=== PATIENT | female | born 1995 | race Hispanic/Latino ===

== ENCOUNTER 2018-03-26 10:38 | Emergency (ER) | payer SELFPAY ==
[2018-03-26] MEDS ORDERED: KETOROLAC TROMETHAMINE 30MG/ML ONE (11:34)
== END 2018-03-26 11:45 | disposition home or self-care (01) ==
LOC: EDH 10:38
DX: S92.511A Displaced fracture of proximal phalanx of right lesser toe(s), initial encounter for closed fracture (principal); W22.8XXA Striking against or struck by other objects, initial encounter; Y93.89 Activity, other specified; Y92.89 Other specified places as the place of occurrence of the external cause; Y99.8 Other external cause status
CPT/HCPCS: 73660; 81025; 96372; 99285; J1885

== ENCOUNTER 2018-11-22 13:35 | Emergency (ER) | payer OTHER ==
[2018-11-22] MEDS ORDERED: NEOMYCIN/POLYMYXIN/HC OTIC SUSP 10ML BOTTLE ONE (14:58)
== END 2018-11-22 15:28 | disposition home or self-care (01) ==
LOC: EDH 13:35
DX: H60.391 Other infective otitis externa, right ear (principal); Z98.890 Other specified postprocedural states

== ENCOUNTER 2019-05-08 10:38 | Emergency (ER) | payer OTHER | END 2019-05-08 11:32 | disposition home or self-care (01) | LOC: EDH 10:38 | DX: M54.5 Low back pain (principal); Z98.890 Other specified postprocedural states | CPT/HCPCS: 99281 ==

== ENCOUNTER 2021-07-31 09:18 | Emergency (ER) | payer OTHER ==
[~2021-07-31] VITALS: Ht 175.3 cm; Wt 136.1 kg
[2021-07-31 09:27] VITALS: BP 97/50
[2021-07-31 10:08] LABS: BASOPHILS % (AUTO) 0.2 % (0.0-5.0); EOSINOPHILS % (AUTO) 1.1 % (0.0-8.0); HEMATOCRIT 43.8 % (36-48); LYMPHOCYTES % (AUTO) 20.8 % (21.0-51.0); MEAN CORPUSCULAR HEMOGLOBIN 27.5 pg (27.0-33.0); MEAN CORPUSCULAR VOLUME 85.9 fL (79-99); MONOCYTES % (AUTO) 5.3 % (3.0-13.0); NEUTROPHILS % (AUTO) 72.2 % (40.0-77.0); PLATELET COUNT (AUTO) 531 K/uL (130-400); RED CELL DISTRIBUTION WIDTH 14.1 % (11.0-15.5); WHITE BLOOD COUNT (AUTO) 12.6 K/uL (4.8-10.8)
[2021-07-31] MEDS ORDERED: ACETAMINOPHEN 325 MG TAB ONE ×2 (10:15→10:21)
[2021-07-31 10:24] LABS: ALBUMIN 3.2 g/dL (3.5-5.0); CREATININE 0.6 mg/dL (0.5-1.5); POTASSIUM 4.8 mmol/L (3.5-5.1)
[2021-07-31] MEDS ORDERED: ACETAMINOPHEN 325 MG TAB PO SCH (10:30)
[2021-07-31 10:34] LABS: BILIRUBIN,TOTAL 0.6 mg/dL (0.2-1.0); TOTAL PROTEIN, SERUM 6.6 g/dL (6.0-8.3)
[2021-07-31 10:46] LABS: ABG BASE EXCESS -1.6 mmol/L (-2.0-3.0); ABG HCO3 22.4 mmol/L (21.0-28.0); ABG OXYGEN SATURATION 91.4 % (95.0-99.0); ABG PCO2 36 mmHg (32-45)
[2021-07-31 14:58] VITALS: BP 108/47
== END 2021-07-31 15:05 | disposition home or self-care (01) ==
LOC: EDH 09:18
DX: R06.02 Shortness of breath (principal); M54.6 Pain in thoracic spine; Z20.822 Contact with and (suspected) exposure to COVID-19; E11.9 Type 2 diabetes mellitus without complications
CPT/HCPCS: 36415; 36600; 71045; 80053; 82010; 82803; 82948; 84484; 84703; 85025; 85378; 87040 ×2; 87635; 93005; 99285; C9803